=== PATIENT | male | born 1955 | race Two or more races ===

== ENCOUNTER 2017-09-24 08:31 | Day surgery (SDC) | payer OTHER ==
[2017-09-23 14:53] VITALS: BMI 24.8
[2017-09-24 09:01] LABS: BASO % 0.7 % (0-2.0); EOS % 3.5 % (0-4.5); HEMOGLOBIN 15.9 GM/dL (11.7-16.9); LYMPH % 30.1 % (8-40); MCH 31.6 pg (25.7-33.7); MCHC 33.8 g/dl (32.0-35.9); MEAN CELL VOLUME 93.6 fl (80-96); MEAN PLT VOLUME 7.9 fl (7.5-11.1); MONO % 9.9 % (3.8-10.2); NEUT % 55.8 % (42.8-82.8); PLATELET COUNT 204 K/MM3 (134-434); RBC 5.02 M/mm3 (4.00-5.60); RDW 12.6 % (11.9-15.9); WHITE BLOOD COUNT 6.9 K/mm3 (4.0-10.0)
[2017-09-24 09:23] LABS: INR 1.05 (0.82-1.09); PROTHROMBIN TIME (PATIENT) 11.9 SEC (9.98-11.88)
[2017-09-24 12:14] VITALS: BP 112/68; PULSE 76; TEMP 98
--- NOTE | 2017-09-29 17:09 | PATH ---
Surgical Pathology Report Patient Name: CARMELINA GREGORY [facility]. Rec. #: [id number] /Age/Gender: 1955 (Age: 62) / M Account: [id number] Location: RADIOLOGY Taken: 09/24/2017 Received: 09/24/2017 Reported: 09/29/2017 Physicians: Thaddeus Cline M.D. Specimen(s) Received RIGHT GROIN BX Clinical History 62-year-old male with lymph node biopsy and NHL. Now with inguinal adenopathy Final Diagnosis INGUINAL LYMPH NODE, RIGHT, CORE BIOPSY: DIFFUSE LARGE B-CELL LYMPHOMA, NON-GERMINAL CENTER (NGC) B-CELL-LIKE, SEE COMMENT. Comment: Histologic sections show normal lymph node structures are not identified. There is a partial infiltrate by medium sized to large lymphoid cells with oval to irregular nuclear contours, vesicular chromatin and conspicuous nucleoli. Immunostains demonstrate that the large B cells are positive for CD20, PAX-5, BCL2, BCL6, and MUM-1. The proliferative rate is approximately 30%. Concurrent flow cytometry immunophenotyping ([id number]) detected a clonal B-cell population with non-specific immunophenotype, 10% of total events. History of previously diagnosed diffuse large B cell lymphoma, non-germinal center subtype, in occipital soft tissue mass is noted ([id number]). Case was sent for hematopathology consultation with immunohistochemistry to Reese Lindsey at [facility] ([id number]). The above diagnosis reflects his opinion. Findings discussed with Dr. Cline. See Emerge report for additional details ([id number] and [id number]) Electronically Signed Jenni Diallo M.D. Addendum Reported: 10/06/2017 Addendum Diagnosis FISH Report from [facility] in [place], [place] ([id number]) shows the following: INTERPRETATION: No IGH/BCL2 t(14;18) translocation is detected. No MYC (8q24) rearrangement is detected. No BCL6 (3q27) rearrangement is detected. Comment: Multiple copies of BCL 2(14;18) are seen in 60% of cells. Three copies of BCL6 (3q 27) are seen in 40% of cells. Three multiplex probes stain procedures were performed. Jenni Diallo M.D. Gross Description Received in formalin labeled "right groin biopsy," are 3 meyers, cylindrical portions of soft tissue ranging from 0.6-0.8 cm in length and averaging 0.1 cm in diameter. The specimens are submitted in toto in one cassette. 09/24/201709/24/2017
== END 2017-09-24 12:17 | disposition home or self-care (01) ==
LOC: JRADIR 08:31
PROVIDERS: ATTEND Surgery
PROC: 07BH3ZX Excision of Right Inguinal Lymphatic, Percutaneous Approach, Diagnostic (ICD-10-PCS; principal; 2017-09-24)
DX: C83.55 Lymphoblastic (diffuse) lymphoma, lymph nodes of inguinal region and lower limb (principal)
CPT/HCPCS: 36415; 38505; 76942-TC; 85025; 85610; 88305-TC

== ENCOUNTER 2017-12-31 05:43 | Inpatient (IN) | payer OTHER ==
--- NOTE | 2017-12-31 06:12 | PDOC ---
*Physical Exam - Vital Signs Last Vital Signs Temp Pulse Resp BP Pulse Ox 98.1 F 111 H 18 139/88 100 12/31/17 05:54 12/31/17 05:54 12/31/17 05:54 12/31/17 05:54 12/31/17 05:54 ED Treatment Course - LABORATORY CBC & Chemistry Diagram: 01/04/18 07:00 01/04/18 07:00 Medical Decision Making - Medical Decision Making 12/31/17 06:12 agree with care from TONY Hummel *DC/Admit/Observation/Transfer Diagnosis at time of Disposition: History of non-Hodgkin's lymphoma, Abdominal pain, SBO (small bowel obstruction ) - Discharge Dispostion Disposition: HOME Condition at time of disposition: Good - Prescriptions - Referrals - Patient Instructions - Post Discharge Activity
[2017-12-31] MEDS ORDERED: ONDANSETRON 4 MG/2 ML VIAL IVPUSH ONE ×2 (06:15→22:10)
[2017-12-31] MEDS ORDERED: ONDANSETRON 4 MG/2 ML VIAL ONE (06:26)
--- NOTE | 2017-12-31 06:32 | PDOC ---
History of Present Illness - General Chief Complaint: Pain Stated Complaint: PAIN/BLOOD IN URINE Time Seen by Provider: 12/31/17 05:57 History Source: Patient - History of Present Illness Initial Comments: 12/31/17 06:33 62-year-old male with history of lymphoma currently on chemotherapy complains of generalized abdominal pain, nausea, hiccups and abdominal distention. Patient reports that he was admitted for the last week for chemotherapy was released just 3 days ago. Patient is noted to have worsening constipation is discharged from the hospital at [facility]. Patient was was seen by Dr. Madrid was given Fleet enema, with positive BM. Patient continued to have abdominal distention and discomfort despite bowel movement. Patient reports that he has been drinking less due to the nausea and urine is less and dark. Unsure of hematuria. denies fevers/chills, chest pain, diaphoresis, dizziness, vomiting. PMHx: Seizure Disorder, Hemorrhoids, Non-Hodgkins Lymphoma, Aortic Aneurysm ( 2008). PSHx of: Angioplasty, Cholestectomy, Colonoscopy (2013, small polyp removed) PMD: Dr. Joshua Aguilera Past History - Past Medical History Allergies/Adverse Reactions: Allergies Allergy/AdvReac Type Severity Reaction Status Date / Time No Known Drug Allergies Allergy Verified 12/31/17 05:57 Home Medications: Ambulatory Orders Acyclovir [Zovirax -] 1 tab PO BID 12/31/17 Ciprofloxacin HCl [Cipro] 1 tab PO BID 12/31/17 Filgrastim [Neupogen -] 1 syringe SQ HS 12/31/17 Fluconazole 200 mg PO DAILY 12/31/17 Levetiracetam [Keppra Xr -] 750 mg PO DAILY 12/31/17 Prochlorperazine Maleate [Compazine] 10 mg PO QID PRN 12/31/17 Acyclovir [Zovirax -] 400 mg PO BID tablet 01/03/18 Docusate Sodium [Colace] 100 mg PO TID #90 capsule 01/03/18 Fluconazole [Diflucan -] 200 mg PO DAILY tablet 01/03/18 Prochlorperazine Maleate [Compazine -] 10 mg PO Q6HPO PRN #20 tablet 01/03/18 Sennosides [Senna] 8.6 mg PO BID #60 tablet 01/03/18 Tbo-Filgrastim [Granix -] 480 mcg SQ HS disp.syrin 01/03/18 levETIRAcetam [Levetiracetam -] 750 mg PO AM tab.er.24h 01/03/18 metroNIDAZOLE [Flagyl -] 250 mg PO TID #42 tablet 01/03/18 Anemia: Yes Asthma: No Cancer: No Cardiac Disorders: Yes (AORTIC ANEURYSM) CVA: No COPD: No CHF: No ((FOLLOWED BY DR GREEN) Dementia: No Diabetes: No GI Disorders: Yes (BLOATED, hemmorhoids) Disorders: No HTN: No Hypercholesterolemia: No Liver Disease: No Seizures: Yes (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, FLASHES LAST WEDNESDAY) Thyroid Disease: No - Surgical History Abdominal Surgery: No Appendectomy: No Cardiac Surgery: Yes (ANGIOPLASTY) Cholecystectomy: Yes () Lung Surgery: No Neurologic Surgery: No Orthopedic Surgery: No - Immunization History Immunization Up to Date: No - Suicide/Smoking/Psychosocial Hx Smoking Status: Yes Smoking History: Former smoker Have you smoked in the past 12 months: No Number of Cigarettes Smoked Daily: 10 If you are a former smoker, when did you quit?: 1980s Cigars Per Day: 3 Information on smoking cessation initiated: No Hx Alcohol Use: Yes (social) Drug/Substance Use Hx: No Substance Use Type: None Hx Substance Use Treatment: No Review of Systems - Review of Systems Able to Perform ROS?: Yes Is the patient limited Ukrainian proficient: No Constitutional: No: Symptoms Reported, See HPI, Chills, Diaphoresis, Fever, Loss of Appetite, Malaise, Night Sweats, Weakness, Weight Stable, Unintentional Wgt. Loss, Unexplained wgt Loss, Other ABD/GI: Yes: Constipated, Nausea, Abdominal cramping : Yes: Hematuria *Physical Exam - Vital Signs Last Vital Signs Temp Pulse Resp BP Pulse Ox 98.1 F 111 H 18 139/88 100 12/31/17 05:54 12/31/17 05:54 12/31/17 05:54 12/31/17 05:54 12/31/17 05:54 - Physical Exam General Appearance: Yes: Mild Distress Respiratory/Chest: positive: Lungs Clear, Normal Breath Sounds Cardiovascular: positive: Regular Rhythm, Regular Rate Gastrointestinal/Abdominal: positive: Decreased BS, Distended Musculoskeletal: positive: Normal Inspection Extremity: positive: Normal Capillary Refill, Normal Inspection, Normal Range of Motion Integumentary: positive: Normal Color, Dry, Warm Neurologic: positive: Fully Oriented, Alert, Normal Mood/Affect ED Treatment Course - LABORATORY CBC & Chemistry Diagram: 01/03/18 07:00 01/03/18 07:00 Progress Note - Progress Note Progress Note: A: abdominal pain P: cbc cmp CTAP Patient signed out Willard LEIVA. pending results. *DC/Admit/Observation/Transfer Diagnosis at time of Disposition: History of non-Hodgkin's lymphoma, SBO (small bowel obstruction) Abdominal pain Qualifiers: Abdominal location: generalized Qualified Code(s): R10.84 - Generalized abdominal pain - Discharge Dispostion Condition at time of disposition: Good - Prescriptions - Referrals - Patient Instructions - Post Discharge Activity
[2017-12-31 06:42] LABS: URINE APPEARANCE CLEAR; URINE BILIRUBIN NEGATIVE (NEGATIVE); URINE BLOOD NEGATIVE (NEGATIVE); URINE COLOR YELLOW; URINE GLUCOSE (UA) 1+ (NEGATIVE); URINE KETONE TRACE (NEGATIVE); URINE LEUK ESTERASE NEGATIVE (NEGATIVE); URINE NITRITE NEGATIVE (NEGATIVE); URINE PROTEIN NEGATIVE (NEGATIVE); URINE UROBILINOGEN NEGATIVE mg/dL (0.2-1.0)
[2017-12-31 06:45] LABS: BASO % 0.3 % (0-2.0); EOS % 1.2 % (0-4.5); HEMATOCRIT 40.4 % (35.4-49); HEMOGLOBIN 14.2 GM/dL (11.7-16.9); LYMPH % 13.4 % (8-40); MCH 33.5 pg (25.7-33.7); MCHC 35.2 g/dl (32.0-35.9); MEAN PLT VOLUME 9.2 fl (7.5-11.1); MONO % 5.1 % (3.8-10.2); PLATELET COUNT 107 K/MM3 (134-434); RBC 4.25 M/mm3 (4.00-5.60); RDW 13.5 % (11.9-15.9)
[2017-12-31] MEDS ORDERED: SODIUM CHLORIDE 500 ML IV STA (06:49)
[2017-12-31 07:08] LABS: ALBUMIN 3.9 g/dl (3.4-5.0); ALK PHOS 128 U/L (45-117); ANION GAP 8 (8-16); BILIRUBIN,TOTAL 1.1 mg/dL (0.2-1.0); BLOOD UREA NITROGEN 13 mg/dL (7-18); CALCIUM 9.4 mg/dL (8.5-10.1); CHLORIDE 91 mmol/L (98-107); CO2 28 mmol/L (21-32); CREATININE 0.8 mg/dL (0.7-1.3); GLUCOSE,RANDOM 115 mg/dL (74-106); LIPASE 170 U/L (73-393); POTASSIUM 3.9 mmol/L (3.5-5.1); SGOT/AST 30 U/L (15-37); SGPT/ALT 68 U/L (12-78); SODIUM 127 mmol/L (136-145); TOT PROT 6.9 g/dl (6.4-8.2)
[2017-12-31 07:09] LABS: INR 1.06 (0.82-1.09)
[2017-12-31 07:11] LABS: ACTIVATED PTT 27.1 SECONDS (26.9-34.4)
--- NOTE | 2017-12-31 08:06 | PDOC ---
ED Treatment Course - LABORATORY CBC & Chemistry Diagram: 12/31/17 06:30 12/31/17 06:30 - ADDITIONAL ORDERS Additional order review: Laboratory Results 12/31/17 12/31/17 12/31/17 06:30 06:30 06:30 PT with INR 12.00 H INR 1.06 PTT (Actin FS) 27.1 Sodium 127 L Potassium 3.9 Chloride 91 L D Carbon Dioxide 28 Anion Gap 8 BUN 13 Creatinine 0.8 Creat Clearance w eGFR > 60 Random Glucose 115 H D Calcium 9.4 Total Bilirubin 1.1 H D AST 30 D ALT 68 D Alkaline Phosphatase 128 H D Total Protein 6.9 Albumin 3.9 Lipase 170 Urine Color Yellow Urine Appearance Clear Urine pH 5.0 Ur Specific [place] 1.021 Urine Protein Negative Urine Glucose (UA) 1+ H Urine Ketones Trace H Urine Blood Negative Urine Nitrite Negative Urine Bilirubin Negative Urine Urobilinogen Negative Ur Leukocyte Esterase Negative 12/31/17 06:30 RBC 4.25 MCV 95.0 MCHC 35.2 RDW 13.5 MPV 9.2 D Neutrophils % 80.0 D Lymphocytes % 13.4 D Monocytes % 5.1 Eosinophils % 1.2 Basophils % 0.3 - Medications Given in the ED: ED Medications Discontinued Medications Generic Name Dose Route Start Last Admin Trade Name Freq PRN Reason Stop Dose Admin Ondansetron HCl 4 mg 12/31/17 06:15 12/31/17 06:31 Zofran Injection IVPUSH 12/31/17 06:16 4 mg ONCE ONE Administration Progress Note - Progress Note Progress Note: I have received report from TONY Hummel regarding this patient. Pt's initial chief complaint: abdominal pain, nausea and abdominal distention Pt's work up completed prior to sign out: labs, EKG Pt treatment given from prior staff: IV fluids, zofran Pt plan to be completed: Awaiting CT scan abd/pelvis to r/o SBO Dispo: Pending Medical Decision Making - Medical Decision Making A/P: 62 y/o afebrile male with hx of lymphoma currently on chemotherapy c/o abd pain, nausea and distention x 3 days. Patient was initially assessed by TONY Hummel and is being worked up to r/o SBO. Labs and UA otherwise unremarkable. Awaiting CT scan abd/pelvis. CT scan abd/pelvis IMPRESSION: There is associated prominent fecal accumulation within the ileum. Dilatation of the more proximal small bowel is noted consistent with resultant obstruction. Called Dr. Henriquez who accepts admission on behalf of Dr. Aguilera. Dr. Landry was paged for consult. Spoke with him as well and he will consult. Patient made aware of plan for NG tube and admission. *DC/Admit/Observation/Transfer Diagnosis at time of Disposition: History of non-Hodgkin's lymphoma, SBO (small bowel obstruction) Abdominal pain Qualifiers: Abdominal location: generalized Qualified Code(s): R10.84 - Generalized abdominal pain - Discharge Dispostion Condition at time of disposition: Stable Admit: Yes - Referrals Referrals: Joshua Aguilera MD [Primary Care Provider] - - Patient Instructions - Post Discharge Activity
--- NOTE | 2017-12-31 09:43 | EKG ---
Test Reason : Blood Pressure : / mmHG Vent. Rate : 092 BPM Atrial Rate : 092 BPM P-R Int : 146 ms QRS Dur : 090 ms QT Int : 352 ms P-R-T Axes : 065 -03 039 degrees QTc Int : 435 ms POOR DATA QUALITY, INTERPRETATION MAY BE ADVERSELY AFFECTED SINUS RHYTHM WITH PREMATURE SUPRAVENTRICULAR COMPLEXES WHEN COMPARED WITH ECG OF 01-MAY-2016 22:11, PREMATURE SUPRAVENTRICULAR COMPLEXES ARE NOW PRESENT Confirmed by ROSA M GREEN MD ([id number]) on 12/31/2017 9:43:02 AM Referred By: Confirmed By:ROSA M GREEN MD
[2017-12-31] MEDS ORDERED: LIDOCAINE HCL 2% JELLY (5 ML/TUBE) ONE (11:06)
--- NOTE | 2017-12-31 11:25 | CONSULT ---
Consult Consult Specialty:: General Surgery Referred by:: Katharina Palacios NP Reason for Consultation:: SBO on imaging - History of Present Illness Chief Complaint: nausea and abdominal distension History of Present Illness: 62yo male with PMH chronic constipation, seizures on keppra, HTN, Non-Hodgkin Lymphoma recently started dual agent chemotherapy presented to he emergency department complaining of generalized abdominal pain, nausea, hiccups, burping and abdominal distention. He has had no vomiting. Patient reports that he was admitted for the last week for chemotherapy was released just 3 days ago. Patient is noted to have worsening constipation is discharged from the hospital at [facility]. Patient was was seen by Dr. Madrid was given Fleet enema, with positive BM. Patient continued to have abdominal distention and discomfort despite bowel movement. He is not passing flatus like normal, he is obstipated, reporting 2 mucus like BM, non bloody. He denies feeling hungry, not eating much. Patient reports that he has been drinking less due to the nausea and urine is less and dark. Unsure of hematuria. denies fevers/chills , chest pain, diaphoresis, dizziness, vomiting. He had a CT scan that showed fecal retention and associated SBO. We were asked to assess. - History Source History Provided By: Patient, Medical Record Limitations to Obtaining History: No Limitations - Past Medical History Gastrointestinal: Yes: Constipation Additional Medical History: NHL - Alcohol/Substance Use Hx Alcohol Use: Yes (social) - Smoking History Smoking history: Former smoker Have you smoked in the past 12 months: No Aproximately how many cigarettes per day: 10 If you are a former smoker, when did you quit?: 1980s Home Medications - Allergies Allergies/Adverse Reactions: Allergies Allergy/AdvReac Type Severity Reaction Status Date / Time No Known Drug Allergies Allergy Verified 12/31/17 05:57 - Home Medications Home Medications: Ambulatory Orders Unobtainable [Unobtainable] 12/31/17 Review of Systems - Review of Systems Constitutional: reports: Lethargy, Loss of Appetite. denies: Chills, Fever Eyes: denies: Blind Spots, Recent Change in Vision HENT: denies: Difficult Swallowing, Throat Pain Cardiovascular: denies: Chest Pain, Palpitations Respiratory: denies: Cough, SOB Gastrointestinal: reports: Abdominal Pain, Constipation. denies: Indigestion, Vomiting Genitourinary: denies: Burning, Discharge, Dysuria Breasts: reports: No Symptoms Reported. denies: Pain Musculoskeletal: denies: Back Pain, Joint Swelling Integumentary: reports: Other (acute alopecia 2nd to chemotherapy). denies: Bruising, Eczema Neurological: reports: Seizure. denies: Confusion, Syncope Endocrine: denies: Unexplained Weight Gain, Unexplained Weight Loss Hematology/Lymphatic: denies: Easily Bruised, Excessive Bleeding Psychiatric: denies: Anxiety, Depression Physical Exam Vital Signs: Vital Signs Temperature 98.1 F 12/31/17 05:54 Pulse Rate 111 H 12/31/17 05:54 Respiratory Rate 18 12/31/17 05:54 Blood Pressure 139/88 12/31/17 05:54 O2 Sat by Pulse Oximetry (%) 100 12/31/17 05:54 Vital Signs Period Temp Pulse Resp BP Sys/Gonzalez Pulse Ox Last 24 Hr 98.1 F-98.9 F 88-111 -18 130-146/67-96 98-100 Intake & Output 12/30/17 12/31/17 12/31/17 23:59 07:59 15:59 Weight 176 lb 173 lb 3.2 oz Other: Voiding Method Toilet Height 5 ft 10 in 5 ft 10 in Body Mass Index (BMI) 25.2 24.8 Weight Measurement Method Built in [facility] Weight Measurement Method Est/Stated by Patient Constitutional: Yes: Well Nourished, No Distress, Calm Eyes: Yes: Conjunctiva Clear, EOM Intact HENT: Yes: Atraumatic, Normocephalic, Other (acute alopecia scalp and) Cardiovascular: Yes: Regular Rate and Rhythm, S1, S2 Respiratory: Yes: Regular, CTA Bilaterally Gastrointestinal: Yes: Normal Bowel Sounds, Soft, Distention, Tenderness ( diffuse abdominal pain), Other (NGT to LCWS scant output ~50ml gastroenteric). No: Tenderness, Rebound, Vomiting ...Rectal Exam: Yes: Hemorrhoids/External, Sphincter Tone Normal. No: Mass Renal/: No: CVA Tenderness - Left, CVA Tenderness - Right Musculoskeletal: No: Muscle Pain, Muscle Weakness Extremities: No: Cool, Cyanosis Peripheral Pulses WNL: Yes Integumentary: No: Jaundice, Rash Neurological: Yes: Alert, Oriented Psychiatric: Yes: Alert, Oriented Labs: CBC, BMP 12/31/17 06:30 12/31/17 06:30 Imaging - Results Cat Scan: Report Reviewed (Massive fecal renention of the right and transverse colon with associated SBO), Image Reviewed EKG: Report Reviewed (sinus with some PVC), Image Reviewed Problem List - Problems (1) Constipation Assessment/Plan: 62 yo male with NHL Fecal retention right and transverse colon, fecalization of IC valve functioning as an SBO. This is likely secondary to dehydration and constipation following his recent chemotherapy. NPO and IVF hydration NGT decompression 6-8hrs Aggressively correct electrolytes given plan for laxatives and seizure history PO and MI laxatives (Dulcolax) Miralax via NGT after decompression OOB walk around Abdominal Xrays tomorrow morning Consider GI f/u with Dr. Robertson will follow Thank you for the opportunity to participate in the care of this patient. Code(s): K59.00 - CONSTIPATION, UNSPECIFIED Qualifiers: Constipation type: drug induced constipation Qualified Code(s): K59.03 - Drug induced constipation (2) SBO (small bowel obstruction) Code(s): K56.609 - UNSP INTESTNL OBST, UNSP TO PARTIAL VERSUS COMPLETE OBST (3) Abdominal pain Code(s): R10.9 - UNSPECIFIED ABDOMINAL PAIN Qualifiers: Abdominal location: generalized Qualified Code(s): R10.84 - Generalized abdominal pain (4) History of non-Hodgkin's lymphoma Code(s): Z85.72 - PERSONAL HISTORY OF NON-HODGKIN LYMPHOMAS (5) Hemorrhoids Code(s): K64.9 - UNSPECIFIED HEMORRHOIDS
[2017-12-31] MEDS ORDERED: BISACODYL 5 MG TABLET.DR (FP) PO PRN (11:37)
[2017-12-31] MEDS ORDERED: BISACODYL 10 MG SUPP.RECT RC ONE ×2 (11:37→13:55)
[2017-12-31] MEDS ORDERED: SODIUM CHLORIDE 0.9% 500 ML INFUS.BAG IV ONE (11:41)
[2017-12-31] MEDS ORDERED: LACTATED RINGERS SOLUTION 1,000 ML/1,000 ML INFUS.BAG IV SCH (11:45)
[2017-12-31] MEDS: SODIUM CHLORIDE 1,000 ML IV SCH ×2 (12:46→14:01)
[2017-12-31 13:00] VITALS: BMI 24.8
[2017-12-31] MEDS ORDERED: POLYETHYLENE GLYCOL 3350 255 GM BTL PO ONE (14:00)
[2017-12-31] MEDS: FLUCONAZOLE 100 MG TABLET (UD) PO SCH (17:02)
[2017-12-31] MEDS: KETOROLAC TROMETHAMINE 30 MG/1 ML VIAL IVPB PRN (17:06)
[2017-12-31] MEDS ORDERED: PT OWN MED DRAWER 7, Y5N ONE (18:32)
[2017-12-31] MEDS ORDERED: levETIRAcetam XR 750 MG TAB PO SCH (22:00)
--- NOTE | 2017-12-31 22:32 | HP ---
Admitting History and Physical - Admission History of Present Illness: Pt is a 62 y/o male with PMH significant for NHL(currently on chemotherapy), seizure dz, CAD and HTN. Pt presented to the ER w/ complaints of generalized abdominal pain, nausea, hiccups and abdominal distention. Patient reports that he was admitted for the last week for chemotherapy was released just 3 days ago. Patient is noted to have worsening constipation. Patient was seen by GI( Dr. Madrid) and given Fleet enema, with positive BM. Patient continued to have abdominal distention and discomfort despite bowel movement. Patient reports that he has been drinking less due to the nausea and urine is less and dark. U - Past Medical History Cardiovascular: Yes: HTN Gastrointestinal: Yes: Constipation Heme/Onc: Yes: Other (NHL) - Past Surgical History Past Surgical History: Yes: AAA Repair - Smoking History Smoking history: Former smoker Have you smoked in the past 12 months: No Aproximately how many cigarettes per day: 10 If you are a former smoker, when did you quit?: 1980s - Alcohol/Substance Use Hx Alcohol Use: Yes (social) Home Medications - Allergies Allergies/Adverse Reactions: Allergies Allergy/AdvReac Type Severity Reaction Status Date / Time No Known Drug Allergies Allergy Verified 12/31/17 05:57 - Home Medications Home Medications: Ambulatory Orders Acyclovir [Zovirax -] 1 tab PO BID 12/31/17 Bisacodyl [Dulcolax] 5 mg PO DAILY PRN 12/31/17 Ciprofloxacin HCl [Cipro] 1 tab PO BID 12/31/17 Filgrastim [Neupogen -] 1 syringe SQ HS 12/31/17 Fluconazole 200 mg PO DAILY 12/31/17 Levetiracetam [Keppra Xr -] 750 mg PO DAILY 12/31/17 Prochlorperazine Maleate [Compazine] 10 mg PO QID PRN 12/31/17 Family Disease History - Family Disease History Family History: Unremarkable Review of Systems - Review of Systems Constitutional: reports: Weakness HENT: reports: No Symptoms Neck: reports: No Symptoms Cardiovascular: reports: No Symptoms Respiratory: reports: No Symptoms Gastrointestinal: reports: Abdominal Pain, Bloating, Constipation Physical Examination Vital Signs: Vital Signs Temperature 99.2 F 12/31/17 17:29 Pulse Rate 92 H 12/31/17 17:29 Respiratory Rate 20 12/31/17 17:29 Blood Pressure 137/83 12/31/17 17:29 O2 Sat by Pulse Oximetry (%) 100 12/31/17 14:15 Constitutional: Yes: Well Nourished HENT: Yes: WNL Neck: Yes: WNL, Supple Cardiovascular: Yes: WNL, Regular Rate and Rhythm Respiratory: Yes: WNL, Regular, CTA Bilaterally Gastrointestinal: Yes: Distention, Tenderness Musculoskeletal: Yes: WNL Extremities: Yes: WNL Edema: No Neurological: Yes: WNL, Alert, Oriented Labs: CBC, BMP 12/31/17 06:30 12/31/17 06:30 Problem List - Problems (1) SBO (small bowel obstruction) Assessment/Plan: Cont IVF/NPO As per surgery Will also get GI consult Code(s): K56.609 - UNSP INTESTNL OBST, UNSP TO PARTIAL VERSUS COMPLETE OBST (2) Non-Hodgkin lymphoma Assessment/Plan: Cont chemotx Code(s): C85.90 - NON-HODGKIN LYMPHOMA, UNSPECIFIED, UNSPECIFIED SITE (3) Leukopenia Assessment/Plan: Cont neupogen Code(s): D72.819 - DECREASED WHITE BLOOD CELL COUNT, UNSPECIFIED (4) History of seizures Assessment/Plan: Cont keppra May need to make it IV due to SBO Code(s): Z87.898 - PERSONAL HISTORY OF OTHER SPECIFIED CONDITIONS
[2017-12-31] MEDS ORDERED: levETIRAcetam 500 MG/5 ML INJECTION VIAL IVPB ONE (23:32)
[2017-12-31] MEDS ORDERED: BISACODYL 10 MG SUPP.RECT PR ONE (23:33)
[2017-12-31] MEDS: ACYCLOVIR 400 MG TABLET PO SCH (23:45)
[2017-12-31] MEDS: TBO-FILGRASTIM 480 MCG/0.8 ML DISP.SYRIN SQ SCH (23:53)
[2018-01-01] MEDS ORDERED: levETIRAcetam 500 MG/5 ML INJECTION VIAL IVPB ONE (00:13)
[2018-01-01] MEDS ORDERED: BISACODYL 5 MG TABLET.DR (FP) PO PRN (01:56)
[2018-01-01] MEDS: KETOROLAC TROMETHAMINE 30 MG/1 ML VIAL IVPB PRN (02:08)
--- NOTE | 2018-01-01 02:11 | PN ---
Progress Note, Physician Chief Complaint: abdominal pain History of Present Illness: 62yo male with PMH chronic constipation, Non-Hodgkin Lymphoma recently started dual agent chemotherapy presented to he emergency department complaining of generalized abdominal pain, nausea, hiccups, burping and abdominal distention. no acute events overnight, NGT was irritating and he asked for its removal - Current Medication List Current Medications: Active Medications Acyclovir (Zovirax -) 400 mg PO BID [facility] Last Admin: 12/31/17 23:45 Dose: Not Given Bisacodyl (Dulcolax -) 5 mg PO DAILY PRN PRN Reason: CONSTIPATION Bisacodyl (Dulcolax -) 5 mg PO DAILY PRN PRN Reason: CONSTIPATION Ciprofloxacin (Cipro (Restricted To Id)) mg PO BID [facility] Fluconazole (Diflucan -) 200 mg PO DAILY [facility] Last Admin: 12/31/17 17:02 Dose: 200 mg Heparin Sodium (Porcine) (Heparin -) 5,000 unit SQ BID [facility] Sodium Chloride (Normal Saline -) 1,000 mls @ 125 mls/hr IV ASDIR [facility] Last Admin: 12/31/17 14:01 Dose: 125 mls/hr Ketorolac Tromethamine (Toradol Injection -) 30 mg IVPB Q6H PRN PRN Reason: PAIN LEVEL 6-10 Stop: 01/05/18 16:18 Last Admin: 01/01/18 02:08 Dose: 30 mg Levetiracetam (Keppra Xr -) 750 mg PO HS [facility] Last Admin: 12/31/17 23:48 Dose: Not Given Levetiracetam (Keppra Xr -) 750 mg PO DAILY [facility] Levofloxacin (Levaquin -) 500 mg PO DAILY@0600 [facility] Last Admin: 12/31/17 17:02 Dose: 500 mg Non-Formulary Medication (Fluconazole [Fluconazole]) 200 mg PO DAILY [facility] Ondansetron HCl (Zofran Injection) 4 mg IVPUSH Q4H PRN PRN Reason: NAUSEA AND/OR VOMITING Tbo-Filgrastim (Granix -) 480 mcg SQ [facility] Last Admin: 12/31/17 23:53 Dose: 480 mcg - Objective Vital Signs: Vital Signs Temperature 99.2 F 12/31/17 17:29 Pulse Rate 92 H 12/31/17 17:29 Respiratory Rate 20 12/31/17 17:29 Blood Pressure 137/83 12/31/17 17:29 O2 Sat by Pulse Oximetry (%) 100 12/31/17 14:15 Vital Signs Period Temp Pulse Resp BP Sys/Gonzalez Pulse Ox Last 24 Hr 98 F-99.2 F 88-111 18-20 130-162/67-96 98-100 Intake & Output 12/31/17 12/31/17 01/01/18 15:59 23:59 07:59 Intake Total 1000 50 Balance 1000 50 Weight 173 lb 3.2 oz Intake: IV 1000 Normal Saline - 500 ml @ 1000 500 mls/hr IV ASDIR [facility] Rx#:[id number] IVPB 50 Other: Voiding Method Toilet Toilet Height 5 ft 10 in Body Mass Index (BMI) 24.8 Weight Measurement Method Built in [facility] Constitutional: Yes: Well Nourished, No Distress Eyes: Yes: Conjunctiva Clear, EOM Intact HENT: Yes: Atraumatic, Normocephalic Neck: Yes: Supple, Trachea Midline Cardiovascular: Yes: Regular Rate and Rhythm, S1, S2 Respiratory: Yes: Regular, CTA Bilaterally Gastrointestinal: Yes: Normal Bowel Sounds, Soft, Distention. No: Tenderness ...Rectal Exam: Yes: Deferred Genitourinary: No: CVA Tenderness - Left, CVA Tenderness - Right Musculoskeletal: No: Muscle Pain, Muscle Weakness Extremities: No: Cool, Cyanosis Edema: No Peripheral Pulses WNL: Yes Neurological: Yes: Alert, Oriented Psychiatric: Yes: Alert, Oriented Labs: CBC, BMP 12/31/17 06:30 12/31/17 06:30 INR, PTT INR 1.06 (0.82-1.09) 12/31/17 06:30 Problem List - Problems (1) Constipation Assessment/Plan: 62 yo male with NHL Fecal retention right and transverse colon, fecalization of IC valve functioning as an SBO. This is likely secondary to dehydration and constipation following his recent chemotherapy. Stool burden persists on todays xray. NPO and IVF hydration NGT discontinued correct electrolytes continued Golytely Bowel Prep as tolerated OOB walk around Abdominal Xray appreciate Dr. Marcelo nortonations Code(s): K59.00 - CONSTIPATION, UNSPECIFIED Qualifiers: Constipation type: drug induced constipation Qualified Code(s): K59.03 - Drug induced constipation (2) SBO (small bowel obstruction) Code(s): K56.609 - UNSP INTESTNL OBST, UNSP TO PARTIAL VERSUS COMPLETE OBST (3) Abdominal pain Code(s): R10.9 - UNSPECIFIED ABDOMINAL PAIN Qualifiers: Abdominal location: generalized Qualified Code(s): R10.84 - Generalized abdominal pain (4) History of non-Hodgkin's lymphoma Code(s): Z85.72 - PERSONAL HISTORY OF NON-HODGKIN LYMPHOMAS (5) Hemorrhoids Code(s): K64.9 - UNSPECIFIED HEMORRHOIDS
[2018-01-01] MEDS: ONDANSETRON 4 MG/2 ML VIAL IVPUSH PRN ×3 (03:36→18:55)
[2018-01-01 07:20] LABS: BASO % 0.5 % (0-2.0); EOS % 0.1 % (0-4.5); HEMATOCRIT 38.4 % (35.4-49); HEMOGLOBIN 13.4 GM/dL (11.7-16.9); MCH 33.3 pg (25.7-33.7); MCHC 34.9 g/dl (32.0-35.9); MEAN CELL VOLUME 95.5 fl (80-96); MEAN PLT VOLUME 9.1 fl (7.5-11.1); NEUT % 72.4 % (42.8-82.8); PLATELET COUNT 107 K/MM3 (134-434); RBC 4.02 M/mm3 (4.00-5.60); RDW 13.8 % (11.9-15.9); WHITE BLOOD COUNT 2.1 K/mm3 (4.0-10.0)
[2018-01-01 07:40] LABS: ALBUMIN 3.8 g/dl (3.4-5.0); ANION GAP 13 (8-16); BLOOD UREA NITROGEN 21 mg/dL (7-18); CALCIUM 8.7 mg/dL (8.5-10.1); CHLORIDE 95 mmol/L (98-107); CO2 25 mmol/L (21-32); GLUCOSE,RANDOM 131 mg/dL (74-106); SODIUM 133 mmol/L (136-145)
[2018-01-01 07:43] LABS: ALK PHOS 104 U/L (45-117); BILIRUBIN,TOTAL 0.9 mg/dL (0.2-1.0); MAGNESIUM 2.1 mg/dL (1.8-2.4); PHOSPHOROUS 2.3 mg/dL (2.5-4.9); SGOT/AST 31 U/L (15-37); SGPT/ALT 80 U/L (12-78); TOT PROT 6.6 g/dl (6.4-8.2)
[2018-01-01] MEDS ORDERED: ACYCLOVIR 400 MG TABLET PO SCH (10:00)
[2018-01-01] MEDS ORDERED: levETIRAcetam XR 750 MG TAB PO SCH (10:00)
[2018-01-01] MEDS ORDERED: PATIENT'S OWN MEDICATION (NON-FORMULARY) (Fluconazole [Fluconazole] 200 MG) PO SCH (10:00)
[2018-01-01] MEDS ORDERED: CIPROFLOXACIN 500 MG TABLET (RESTRICTED TO ID) PO SCH (10:00)
[2018-01-01] MEDS: SODIUM CHLORIDE 1,000 ML IV SCH ×2 (11:23→21:10)
[2018-01-01] MEDS ORDERED: PEG3350/SOD SULF,BICARB,CL/KCL 4,000 ML SOLN.RECON PO ONE (11:50)
[2018-01-01] MEDS ORDERED: PEG 3350/NA SULF BICARB CL/KCL 4000 ML SOLN.RECON PO ONE (12:00)
[2018-01-01] MEDS ORDERED: PT OWN MED DRAWER 7, Y5N ONE ×3 (12:03→21:01)
[2018-01-01] MEDS: HEPARIN NA (PORCINE) 5,000 UNITS/ML 1ML VIAL SQ SCH ×3 (12:05→21:21)
[2018-01-01] MEDS: FLUCONAZOLE 100 MG TABLET (UD) PO SCH (12:06)
[2018-01-01] MEDS: ACYCLOVIR 400 MG TABLET PO SCH ×2 (12:06→22:49)
--- NOTE | 2018-01-01 13:18 | CONSULT ---
Consult Consult Specialty:: Oncology - History of Present Illness History of Present Illness: 62yo male with PMH chronic constipation, seizures on keppra, HTN, DLBCL presented to he emergency department complaining of generalized abdominal pain, nausea, hiccups, burping and abdominal distention. He has had no vomiting. Denies fevers/chills, chest pain, diaphoresis, dizziness, vomiting. He had a CT scan that showed fecal retention and associated SBO. Onc Hx as per Pt ( Pt f/u with Oncology at [facility]) NHL: 2012: Occipital mass: DLBCL ABC subtype. ( only resection, as PET CT was negative) 09/2017: Inguinal LN: Recurrence of the above lymphoma 10/2017- 12/2017: s/p R-ICW x 1, s/p R-EPOCH x1. most recent chemo is R-EPOCH , completed as of last Wednesday. Was taking Neupogen since Wednesday this week. Now admitted with SBO/Constipation Pt seen and examined - History Source History Provided By: Patient, Medical Record - Past Medical History Gastrointestinal: Yes: Constipation Additional Medical History: NHL - Alcohol/Substance Use Hx Alcohol Use: Yes (social) - Smoking History Smoking history: Former smoker Have you smoked in the past 12 months: No Aproximately how many cigarettes per day: 10 If you are a former smoker, when did you quit?: 1980s Home Medications - Allergies Allergies/Adverse Reactions: Allergies Allergy/AdvReac Type Severity Reaction Status Date / Time No Known Drug Allergies Allergy Verified 12/31/17 05:57 - Home Medications Home Medications: Ambulatory Orders Acyclovir [Zovirax -] 1 tab PO BID 12/31/17 Bisacodyl [Dulcolax] 5 mg PO DAILY PRN 12/31/17 Ciprofloxacin HCl [Cipro] 1 tab PO BID 12/31/17 Filgrastim [Neupogen -] 1 syringe SQ HS 12/31/17 Fluconazole 200 mg PO DAILY 12/31/17 Levetiracetam [Keppra Xr -] 750 mg PO DAILY 12/31/17 Prochlorperazine Maleate [Compazine] 10 mg PO QID PRN 12/31/17 Review of Systems - Review of Systems Gastrointestinal: reports: Abdominal Pain, Bloating, Constipation, Vomiting. denies: Diarrhea Physical Exam Vital Signs: Vital Signs Temperature 99.3 F 01/01/18 09:00 Pulse Rate 122 H 01/01/18 09:00 Respiratory Rate 18 01/01/18 09:00 Blood Pressure 147/84 01/01/18 09:00 O2 Sat by Pulse Oximetry (%) 97 01/01/18 09:00 Constitutional: Yes: Well Nourished, No Distress, Calm Eyes: Yes: Conjunctiva Clear, EOM Intact HENT: Yes: Atraumatic, Normocephalic Neck: Yes: Supple Cardiovascular: Yes: Regular Rate and Rhythm. No: Bradycardia Respiratory: Yes: Regular, CTA Bilaterally Gastrointestinal: Yes: Normal Bowel Sounds, Abdomen, Obese, Distention. No: Ascites, Tenderness, Tenderness, Epigastrium, Vomiting Musculoskeletal: Yes: WNL Extremities: Yes: WNL Edema: No Labs: CBC, BMP 01/01/18 06:00 01/01/18 06:00 Imaging - Results Cat Scan: Report Reviewed Problem List - Problems (1) History of non-Hodgkin's lymphoma Code(s): Z85.72 - PERSONAL HISTORY OF NON-HODGKIN LYMPHOMAS (2) SBO (small bowel obstruction) Code(s): K56.609 - UNSP INTESTNL OBST, UNSP TO PARTIAL VERSUS COMPLETE OBST (3) Constipation Code(s): K59.00 - CONSTIPATION, UNSPECIFIED Qualifiers: Constipation type: drug induced constipation Qualified Code(s): K59.03 - Drug induced constipation Assessment/Plan DLBCL ( recurrent ) , ABC subtype. s/p R_EPOCH as per pt, d/c from [facility] last weekend. As per him he did NOT get Neulasta, therefore on Neupogen Neupogen already ordered here, confirmed with pharmacy. Today, ANC is 1500, will continue Neupogen and follow CBC trend. Will continue until ANC >2000 x2. daily CBC f/u with his OP Medical oncologist at [facility] SBO/Constipation: CT reviewed, no mass noted, therefore malignant obstruction less likely. Presently on supportive care Plan per Surg/GI
[2018-01-01] MEDS: levETIRAcetam 500 MG/5 ML INJECTION VIAL IVPB SCH (17:51)
--- NOTE | 2018-01-01 18:12 | CON.GI ---
Consult Consult Specialty:: gastroenterology - History of Present Illness History of Present Illness: Asked to see patient because of severe constipation associated with abdominal distention . He had fair results with enemas given as an outpatient. - History Source History Provided By: Patient Limitations to Obtaining History: No Limitations - Past Medical History Gastrointestinal: Yes: Constipation Additional Medical History: NHL - Alcohol/Substance Use Hx Alcohol Use: Yes (social) - Smoking History Smoking history: Former smoker Have you smoked in the past 12 months: No Aproximately how many cigarettes per day: 10 If you are a former smoker, when did you quit?: 1980s Home Medications - Allergies Allergies/Adverse Reactions: Allergies Allergy/AdvReac Type Severity Reaction Status Date / Time No Known Drug Allergies Allergy Verified 12/31/17 05:57 - Home Medications Home Medications: Ambulatory Orders Acyclovir [Zovirax -] 1 tab PO BID 12/31/17 Bisacodyl [Dulcolax] 5 mg PO DAILY PRN 12/31/17 Ciprofloxacin HCl [Cipro] 1 tab PO BID 12/31/17 Filgrastim [Neupogen -] 1 syringe SQ HS 12/31/17 Fluconazole 200 mg PO DAILY 12/31/17 Levetiracetam [Keppra Xr -] 750 mg PO DAILY 12/31/17 Prochlorperazine Maleate [Compazine] 10 mg PO QID PRN 12/31/17 Physical Exam-GI Vital Signs: Vital Signs Temperature 98.1 F 01/01/18 16:17 Pulse Rate 109 H 01/01/18 16:17 Respiratory Rate 20 01/01/18 16:17 Blood Pressure 147/86 01/01/18 16:17 O2 Sat by Pulse Oximetry (%) 97 01/01/18 09:00 Constitutional: Yes: Well Nourished Eyes: Yes: Conjunctiva Clear HENT: Yes: Atraumatic Neck: Yes: Supple Cardiovascular: Yes: Regular Rate and Rhythm Respiratory: Yes: CTA Bilaterally Gastrointestinal Inspection: Yes: Distention ...Palpate: Yes: Soft. No: Firm/Rigid, Guarding, Hepatomegaly, Mass, Pulsatile Mass, Splenomegaly, Tenderness Labs: CBC, BMP 01/01/18 06:00 01/01/18 06:00 INR, PTT INR 1.06 (0.82-1.09) 12/31/17 06:30 Imaging - Results Cat Scan: Image Reviewed (markedly dilated cecum secondary to fecal impaction) Problem List - Problems (1) Fecal impaction of colon Assessment/Plan: R> trial of fleet enemas serial abdominal examination Code(s): K56.41 - FECAL IMPACTION
[2018-01-01] MEDS: SODIUM PHOSPHATE/NA BIPHOS 133 ML ENEMA PR SCH ×2 (18:46→22:52)
--- NOTE | 2018-01-01 22:26 | PN ---
Progress Note, Physician History of Present Illness: Pt w/ vomiting - Current Medication List Current Medications: Active Medications Acyclovir (Zovirax -) 400 mg PO BID [facility] Last Admin: 01/01/18 12:06 Dose: 400 mg Bisacodyl (Dulcolax -) 5 mg PO DAILY PRN PRN Reason: CONSTIPATION Fluconazole (Diflucan -) 200 mg PO DAILY [facility] Last Admin: 01/01/18 12:06 Dose: 200 mg Heparin Sodium (Porcine) (Heparin -) 5,000 unit SQ BID [facility] Last Admin: 01/01/18 21:21 Dose: Not Given Sodium Chloride (Normal Saline -) 1,000 mls @ 125 mls/hr IV ASDIR [facility] Last Admin: 01/01/18 21:10 Dose: 125 mls/hr Ketorolac Tromethamine (Toradol Injection -) 30 mg IVPB Q6H PRN PRN Reason: PAIN LEVEL 6-10 Stop: 01/05/18 16:18 Last Admin: 01/01/18 02:08 Dose: 30 mg Levetiracetam (Keppra Injection -) 250 mg IVPB Q8H-IV [facility] Last Admin: 01/01/18 17:51 Dose: 250 mg Levofloxacin (Levaquin -) 500 mg PO DAILY@0600 [facility] Last Admin: 01/01/18 05:39 Dose: Not Given Ondansetron HCl (Zofran Injection) 4 mg IVPUSH Q4H PRN PRN Reason: NAUSEA AND/OR VOMITING Last Admin: 01/01/18 18:55 Dose: 4 mg Sodium Phosphate (Fleet Adult Rectal Enema -) 133 ml RI Q4H [facility] Stop: 01/02/18 02:19 Last Admin: 01/01/18 18:46 Dose: 133 ml Tbo-Filgrastim (Granix -) 480 mcg SQ HS [facility] Last Admin: 12/31/17 23:53 Dose: 480 mcg - Objective Vital Signs: Vital Signs Temperature 98.1 F 01/01/18 16:17 Pulse Rate 109 H 01/01/18 16:17 Respiratory Rate 20 01/01/18 16:17 Blood Pressure 147/86 01/01/18 16:17 O2 Sat by Pulse Oximetry (%) 97 01/01/18 09:00 Constitutional: Yes: Well Nourished Neck: Yes: WNL, Supple Cardiovascular: Yes: WNL, Regular Rate and Rhythm Respiratory: Yes: WNL, Regular, CTA Bilaterally Gastrointestinal: Yes: Normal Bowel Sounds, Distention Labs: CBC, BMP 01/01/18 06:00 01/01/18 06:00 INR, PTT INR 1.06 (0.82-1.09) 12/31/17 06:30 Problem List - Problems (1) SBO (small bowel obstruction) Assessment/Plan: Cont IVF/NPO Pt did have bowel movement Cont golytely Code(s): K56.609 - UNSP INTESTNL OBST, UNSP TO PARTIAL VERSUS COMPLETE OBST (2) Leukopenia Assessment/Plan: Cont neupogen Code(s): D72.819 - DECREASED WHITE BLOOD CELL COUNT, UNSPECIFIED (3) Non-Hodgkin lymphoma Code(s): C85.90 - NON-HODGKIN LYMPHOMA, UNSPECIFIED, UNSPECIFIED SITE (4) History of seizures Assessment/Plan: Cont keppra IV Code(s): Z87.898 - PERSONAL HISTORY OF OTHER SPECIFIED CONDITIONS
[2018-01-01] MEDS: TBO-FILGRASTIM 480 MCG/0.8 ML DISP.SYRIN SQ SCH (22:48)
[2018-01-02] MEDS ORDERED: PROCHLORPERAZINE MALEATE 5 MG TABLET PO PRN (01:39)
[2018-01-02] MEDS: SODIUM PHOSPHATE/NA BIPHOS 133 ML ENEMA PR SCH (02:27)
[2018-01-02] MEDS: levETIRAcetam 500 MG/5 ML INJECTION VIAL IVPB SCH ×3 (02:27→18:31)
[2018-01-02 08:33] LABS: HEMATOCRIT 29.5 % (35.4-49); HEMOGLOBIN 10.4 GM/dL (11.7-16.9); MCH 33.5 pg (25.7-33.7); MCHC 35.3 g/dl (32.0-35.9); MEAN CELL VOLUME 94.9 fl (80-96); MEAN PLT VOLUME 8.7 fl (7.5-11.1); PLATELET COUNT 95 K/MM3 (134-434); RBC 3.11 M/mm3 (4.00-5.60); RDW 13.5 % (11.9-15.9); WHITE BLOOD COUNT 4.7 K/mm3 (4.0-10.0)
[2018-01-02] MEDS: SODIUM CHLORIDE 1,000 ML IV SCH ×3 (08:36→23:21)
[2018-01-02 11:00] LABS: CHLORIDE 102 mmol/L (98-107); POTASSIUM 3.3 mmol/L (3.5-5.1); SODIUM 136 mmol/L (136-145)
[2018-01-02 11:06] LABS: ANION GAP 10 (8-16); BLOOD UREA NITROGEN 19 mg/dL (7-18); CALCIUM 7.7 mg/dL (8.5-10.1); CO2 24 mmol/L (21-32); CREATININE 0.7 mg/dL (0.7-1.3); GLUCOSE,RANDOM 83 mg/dL (74-106)
[2018-01-02] MEDS: HEPARIN NA (PORCINE) 5,000 UNITS/ML 1ML VIAL SQ SCH ×2 (11:35→23:21)
[2018-01-02] MEDS: ACYCLOVIR 400 MG TABLET PO SCH ×2 (11:37→23:21)
[2018-01-02] MEDS: FLUCONAZOLE 100 MG TABLET (UD) PO SCH (11:38)
[2018-01-02 12:06] LABS: PLATELET ESTIMATE NORMAL
[2018-01-02] MEDS ORDERED: KCL 10 MEQ IVPB 10 MEQ/100 ML INFUS.BAG IVPB SCH (13:00)
--- NOTE | 2018-01-02 13:01 | PN ---
Progress Note (short form) - Note Progress Note: Patient seen and examined Had BM+ Constitutional: Yes: Well Nourished, No Distress, Calm Eyes: Yes: Conjunctiva Clear, EOM Intact HENT: Yes: Atraumatic, Normocephalic Neck: Yes: Supple Cardiovascular: Yes: Regular Rate and Rhythm. No: Bradycardia Respiratory: Yes: Regular, CTA Bilaterally Gastrointestinal: Yes: Normal Bowel Sounds, Abdomen, Obese, Distention. No: Ascites, Tenderness, Tenderness, Epigastrium, Vomiting Musculoskeletal: Yes: WNL Extremities: Yes: WNL Edema: No Temp Pulse Resp BP Pulse Ox 99.0 F 101 H 20 114/64 97 01/02/18 06:00 01/02/18 06:00 01/02/18 06:00 01/02/18 06:00 01/01/18 21:00 CBC, BMP 01/02/18 06:30 01/02/18 06:30 Current Medications Generic Name Dose Route Start Last Admin Trade Name Freq PRN Reason Stop Dose Admin Acyclovir 400 mg 12/31/17 22:00 01/02/18 11:37 Zovirax - PO Not Given BID [facility] Bisacodyl 5 mg 12/31/17 11:37 Dulcolax - PO DAILY PRN CONSTIPATION Fluconazole 200 mg 12/31/17 16:30 01/02/18 11:38 Diflucan - PO Not Given DAILY [facility] Heparin Sodium (Porcine) 5,000 unit 01/01/18 10:00 01/02/18 11:35 Heparin - SQ 5,000 unit BID [facility] Administration Sodium Chloride 1,000 mls @ 125 mls/hr 12/31/17 11:45 01/02/18 08:36 Normal Saline - IV 125 mls/hr ASDIR [facility] Administration Potassium Chloride 10 meq in 100 mls @ 100 mls/hr 01/02/18 13:00 Potassium Chloride 10 Meq Premix Ivpb - IVPB 01/02/18 14:59 Q60M [facility] Ketorolac Tromethamine 30 mg 12/31/17 16:19 01/01/18 02:08 Toradol Injection - IVPB 01/05/18 16:18 30 mg Q6H PRN Administration PAIN LEVEL 6-10 Levetiracetam 250 mg 01/01/18 18:00 01/02/18 11:36 Keppra Injection - IVPB 250 mg Q8H-IV [facility] Administration Levofloxacin 500 mg 12/31/17 16:15 01/02/18 06:11 Levaquin - PO 500 mg DAILY@0600 [facility] Administration Ondansetron HCl 4 mg 12/31/17 23:35 01/01/18 18:55 Zofran Injection IVPUSH 4 mg Q4H PRN Administration NAUSEA AND/OR VOMITING Prochlorperazine Maleate 10 mg 01/02/18 01:39 Compazine - PO Q6HPO PRN hiccups Tbo-Filgrastim 480 mcg 12/31/17 22:00 01/01/18 22:48 Granix - SQ 480 mcg HS [facility] Administration DLBCL ( recurrent ) , ABC subtype. s/p R_EPOCH as per pt, d/c from [place] last . c/w neupogen, expect lower counts through the next week OI ppx as ordered, pt will take daily CBC, platelets down trend f/u with his OP Medical oncologist at [facility] , has f/u on Wednesday. Severe Constipation: CT reviewed Presently on supportive care Plan per Surg/GI Problem List - Problems (1) History of non-Hodgkin's lymphoma Code(s): Z85.72 - PERSONAL HISTORY OF NON-HODGKIN LYMPHOMAS (2) SBO (small bowel obstruction) Code(s): K56.609 - UNSP INTESTNL OBST, UNSP TO PARTIAL VERSUS COMPLETE OBST (3) Constipation Code(s): K59.00 - CONSTIPATION, UNSPECIFIED Qualifiers: Constipation type: drug induced constipation Qualified Code(s): K59.03 - Drug induced constipation
--- NOTE | 2018-01-02 13:12 | PN ---
Progress Note, Physician Chief Complaint: abdominal pain History of Present Illness: 62yo male with PMH chronic constipation, Non-Hodgkin Lymphoma recently started dual agent chemotherapy presented to he emergency department complaining of generalized abdominal pain, nausea, hiccups, burping and abdominal distention. no acute events overnight, Multiple large volume loose stools reported. - Current Medication List Current Medications: Active Medications Acyclovir (Zovirax -) 400 mg PO BID [facility] Last Admin: 01/02/18 11:37 Dose: Not Given Bisacodyl (Dulcolax -) 5 mg PO DAILY PRN PRN Reason: CONSTIPATION Fluconazole (Diflucan -) 200 mg PO DAILY [facility] Last Admin: 01/02/18 11:38 Dose: Not Given Heparin Sodium (Porcine) (Heparin -) 5,000 unit SQ BID [facility] Last Admin: 01/02/18 11:35 Dose: 5,000 unit Sodium Chloride (Normal Saline -) 1,000 mls @ 125 mls/hr IV ASDIR [facility] Last Admin: 01/02/18 08:36 Dose: 125 mls/hr Potassium Chloride (Potassium Chloride 10 Meq Premix Ivpb -) 10 meq in 100 mls @ 100 mls/hr IVPB Q60M [facility] Stop: 01/02/18 14:59 Ketorolac Tromethamine (Toradol Injection -) 30 mg IVPB Q6H PRN PRN Reason: PAIN LEVEL 6-10 Stop: 01/05/18 16:18 Last Admin: 01/01/18 02:08 Dose: 30 mg Levetiracetam (Keppra Injection -) 250 mg IVPB Q8H-IV [facility] Last Admin: 01/02/18 11:36 Dose: 250 mg Levofloxacin (Levaquin -) 500 mg PO DAILY@0600 [facility] Last Admin: 01/02/18 06:11 Dose: 500 mg Ondansetron HCl (Zofran Injection) 4 mg IVPUSH Q4H PRN PRN Reason: NAUSEA AND/OR VOMITING Last Admin: 01/01/18 18:55 Dose: 4 mg Prochlorperazine Maleate (Compazine -) 10 mg PO Q6HPO PRN PRN Reason: hiccups Tbo-Filgrastim (Granix -) 480 mcg SQ HS [facility] Last Admin: 01/01/18 22:48 Dose: 480 mcg - Objective Vital Signs: Vital Signs Temperature 99.0 F 01/02/18 06:00 Pulse Rate 101 H 01/02/18 06:00 Respiratory Rate 20 01/02/18 06:00 Blood Pressure 114/64 01/02/18 06:00 O2 Sat by Pulse Oximetry (%) 97 01/01/18 21:00 Vital Signs Period Temp Pulse Resp BP Sys/Gonzalez Pulse Ox Last 24 Hr 98.1 F-99.0 F 92-111 18-20 114-147/64-86 97 Intake & Output 01/01/18 01/02/18 01/02/18 23:59 07:59 15:59 Intake Total 375 360 0 Balance 375 360 0 Intake: IV 375 Normal Saline - 1,000 ml 375 @ 125 mls/hr IV ASDIR [facility] Rx#:[id number] Oral 360 0 Other: Voiding Method Toilet Toilet # Unmeasured Voids Void 2 2 Bowel Movement Yes Yes Constitutional: Yes: Well Nourished, No Distress, Calm Eyes: Yes: Conjunctiva Clear, EOM Intact HENT: Yes: Atraumatic, Normocephalic Neck: Yes: Supple, Trachea Midline Cardiovascular: Yes: Regular Rate and Rhythm, S1, S2 Respiratory: Yes: Regular, CTA Bilaterally Gastrointestinal: Yes: Normal Bowel Sounds, Soft, Distention (distension improved and abdomen is softer) ...Rectal Exam: Yes: Deferred Edema: No Peripheral Pulses WNL: Yes Neurological: Yes: Alert, Oriented Psychiatric: Yes: Alert, Oriented Labs: CBC, BMP 01/02/18 06:30 01/02/18 06:30 INR, PTT INR 1.06 (0.82-1.09) 12/31/17 06:30 Problem List - Problems (1) Constipation Assessment/Plan: 62 yo male with NHL Fecal retention right and transverse colon, fecalization of IC valve functioning as an SBO. This is likely secondary to dehydration and constipation following his recent chemotherapy. Stool burden improved in right colon on todays xray. Bowel preop appears to have worked. advance to clear liquid diet for dinner, regular from breakfast correct electrolytes continued Golytely Bowel Prep as tolerated OOB walk around Abdominal Xray appreciate Dr. Robertson reccomendations may be discharged 01/03 at the discretion of the primary team on a bowel regimen (senna, colace, fiber, PO hydration) surgical follow up is not necessary Code(s): K59.00 - CONSTIPATION, UNSPECIFIED Qualifiers: Constipation type: drug induced constipation Qualified Code(s): K59.03 - Drug induced constipation (2) SBO (small bowel obstruction) Code(s): K56.609 - UNSP INTESTNL OBST, UNSP TO PARTIAL VERSUS COMPLETE OBST (3) Abdominal pain Code(s): R10.9 - UNSPECIFIED ABDOMINAL PAIN Qualifiers: Abdominal location: generalized Qualified Code(s): R10.84 - Generalized abdominal pain (4) History of non-Hodgkin's lymphoma Code(s): Z85.72 - PERSONAL HISTORY OF NON-HODGKIN LYMPHOMAS (5) Hemorrhoids Code(s): K64.9 - UNSPECIFIED HEMORRHOIDS
[2018-01-02] MEDS: POTASSIUM CHLORIDE 10 MEQ in SODIUM CHLORIDE 100 ML IVPB SCH ×2 (14:18→15:33)
--- NOTE | 2018-01-02 21:58 | PN ---
Progress Note, Physician History of Present Illness: Pt had small liquid BM today Pt also having hiccups - Current Medication List Current Medications: Active Medications Acyclovir (Zovirax -) 400 mg PO BID [facility] Last Admin: 01/02/18 11:37 Dose: Not Given Bisacodyl (Dulcolax -) 5 mg PO DAILY PRN PRN Reason: CONSTIPATION Fluconazole (Diflucan -) 200 mg PO DAILY [facility] Last Admin: 01/02/18 11:38 Dose: Not Given Heparin Sodium (Porcine) (Heparin -) 5,000 unit SQ BID [facility] Last Admin: 01/02/18 11:35 Dose: 5,000 unit Sodium Chloride (Normal Saline -) 1,000 mls @ 125 mls/hr IV ASDIR [facility] Last Admin: 01/02/18 14:10 Dose: Not Given Ketorolac Tromethamine (Toradol Injection -) 30 mg IVPB Q6H PRN PRN Reason: PAIN LEVEL 6-10 Stop: 01/05/18 16:18 Last Admin: 01/01/18 02:08 Dose: 30 mg Levetiracetam (Keppra Injection -) 250 mg IVPB Q8H-IV [facility] Last Admin: 01/02/18 18:31 Dose: 250 mg Levofloxacin (Levaquin -) 500 mg PO DAILY@0600 [facility] Last Admin: 01/02/18 06:11 Dose: 500 mg Ondansetron HCl (Zofran Injection) 4 mg IVPUSH Q4H PRN PRN Reason: NAUSEA AND/OR VOMITING Last Admin: 01/01/18 18:55 Dose: 4 mg Prochlorperazine Maleate (Compazine -) 10 mg PO Q6HPO PRN PRN Reason: hiccups Tbo-Filgrastim (Granix -) 480 mcg SQ HS [facility] Last Admin: 01/01/18 22:48 Dose: 480 mcg - Objective Vital Signs: Vital Signs Temperature 98.1 F 01/02/18 20:36 Pulse Rate 96 H 01/02/18 20:36 Respiratory Rate 20 01/02/18 20:36 Blood Pressure 140/80 01/02/18 20:36 O2 Sat by Pulse Oximetry (%) 96 01/02/18 20:36 HENT: Yes: WNL Neck: Yes: WNL, Supple Cardiovascular: Yes: WNL, Regular Rate and Rhythm Respiratory: Yes: WNL, Regular, CTA Bilaterally Gastrointestinal: Yes: Normal Bowel Sounds, Distention Labs: CBC, BMP 01/02/18 06:30 01/02/18 06:30 INR, PTT INR 1.06 (0.82-1.09) 12/31/17 06:30 Problem List - Problems (1) SBO (small bowel obstruction) Assessment/Plan: Cont IVF Advance diet as per surgery Check abdominal xray in am Cont dulcolax Code(s): K56.609 - UNSP INTESTNL OBST, UNSP TO PARTIAL VERSUS COMPLETE OBST (2) Leukopenia Assessment/Plan: Cont neupogen Code(s): D72.819 - DECREASED WHITE BLOOD CELL COUNT, UNSPECIFIED (3) Non-Hodgkin lymphoma Code(s): C85.90 - NON-HODGKIN LYMPHOMA, UNSPECIFIED, UNSPECIFIED SITE (4) History of seizures Assessment/Plan: Will change to po keppra in am Code(s): Z87.898 - PERSONAL HISTORY OF OTHER SPECIFIED CONDITIONS (5) Intractable hiccups Code(s): R06.6 - HICCOUGH
[2018-01-02] MEDS: TBO-FILGRASTIM 480 MCG/0.8 ML DISP.SYRIN SQ SCH (23:20)
[2018-01-03] MEDS: levETIRAcetam 500 MG/5 ML INJECTION VIAL IVPB SCH (02:10)
[2018-01-03] MEDS ORDERED: levETIRAcetam XR 750 MG TAB PO SCH ×2 (07:00→22:00)
[2018-01-03 08:18] LABS: HEMATOCRIT 28.5 % (35.4-49); HEMOGLOBIN 9.9 GM/dL (11.7-16.9); MCHC 34.7 g/dl (32.0-35.9); MEAN CELL VOLUME 95.1 fl (80-96); MEAN PLT VOLUME 8.6 fl (7.5-11.1); PLATELET COUNT 123 K/MM3 (134-434); RDW 13.6 % (11.9-15.9); WHITE BLOOD COUNT 13.6 K/mm3 (4.0-10.0)
[2018-01-03 08:46] LABS: ANION GAP 7 (8-16); BLOOD UREA NITROGEN 8 mg/dL (7-18); CALCIUM 7.6 mg/dL (8.5-10.1); CHLORIDE 100 mmol/L (98-107); CO2 27 mmol/L (21-32); CREATININE 0.6 mg/dL (0.7-1.3); GLUCOSE,RANDOM 77 mg/dL (74-106); LDH 219 U/L (87-241); POTASSIUM 3.2 mmol/L (3.5-5.1); SODIUM 134 mmol/L (136-145)
[2018-01-03] MEDS: HEPARIN NA (PORCINE) 5,000 UNITS/ML 1ML VIAL SQ SCH ×2 (10:35→22:37)
[2018-01-03] MEDS: FLUCONAZOLE 100 MG TABLET (UD) PO SCH (10:35)
[2018-01-03] MEDS ORDERED: PT OWN MED DRAWER 7, Y5N ONE (10:47)
[2018-01-03] MEDS: ACYCLOVIR 400 MG TABLET PO SCH ×2 (10:48→22:38)
--- NOTE | 2018-01-03 11:31 | PN ---
Progress Note, Physician Chief Complaint: abdominal pain History of Present Illness: 62yo male with PMH chronic constipation, Non-Hodgkin Lymphoma recently started dual agent chemotherapy presented to he emergency department complaining of generalized abdominal pain, nausea, hiccups, burping and abdominal distention. no acute events overnight, Multiple large volume loose stools reported. Tolerating regular diet. He still has abdominal distension. - Current Medication List Current Medications: Active Medications Acyclovir (Zovirax -) 400 mg PO BID [facility] Last Admin: 01/03/18 10:48 Dose: 400 mg Bisacodyl (Dulcolax -) 5 mg PO DAILY PRN PRN Reason: CONSTIPATION Last Admin: 01/03/18 10:34 Dose: 5 mg Fluconazole (Diflucan -) 200 mg PO DAILY [facility] Last Admin: 01/03/18 10:35 Dose: 200 mg Heparin Sodium (Porcine) (Heparin -) 5,000 unit SQ BID [facility] Last Admin: 01/03/18 10:35 Dose: 5,000 unit Sodium Chloride (Normal Saline -) 1,000 mls @ 125 mls/hr IV ASDIR [facility] Last Admin: 01/02/18 23:21 Dose: 125 mls/hr Ketorolac Tromethamine (Toradol Injection -) 30 mg IVPB Q6H PRN PRN Reason: PAIN LEVEL 6-10 Stop: 01/05/18 16:18 Last Admin: 01/01/18 02:08 Dose: 30 mg Levetiracetam (Keppra Xr -) 750 mg PO AM [facility] Last Admin: 01/03/18 07:17 Dose: Not Given Levofloxacin (Levaquin -) 500 mg PO DAILY@0600 [facility] Last Admin: 01/03/18 07:13 Dose: 500 mg Ondansetron HCl (Zofran Injection) 4 mg IVPUSH Q4H PRN PRN Reason: NAUSEA AND/OR VOMITING Last Admin: 01/01/18 18:55 Dose: 4 mg Prochlorperazine Maleate (Compazine -) 10 mg PO Q6HPO PRN PRN Reason: hiccups Tbo-Filgrastim (Granix -) 480 mcg SQ HS [facility] Last Admin: 01/02/18 23:20 Dose: 480 mcg - Objective Vital Signs: Vital Signs Temperature 98.8 F 01/03/18 06:00 Pulse Rate 85 01/03/18 06:00 Respiratory Rate 20 01/03/18 06:00 Blood Pressure 113/63 01/03/18 06:00 O2 Sat by Pulse Oximetry (%) 96 01/02/18 20:36 Constitutional: Yes: No Distress, Calm Eyes: Yes: Conjunctiva Clear, EOM Intact HENT: Yes: Atraumatic, Normocephalic Neck: Yes: Supple, Trachea Midline Cardiovascular: Yes: Regular Rate and Rhythm, S1, S2 Respiratory: Yes: Regular, CTA Bilaterally Gastrointestinal: Yes: Normal Bowel Sounds, Soft, Distention. No: Tenderness, Tenderness, Epigastrium, Tenderness, Rebound ...Rectal Exam: Yes: Deferred Genitourinary: No: CVA Tenderness - Left, CVA Tenderness - Right Extremities: No: Cool, Cyanosis Neurological: Yes: Alert, Oriented Psychiatric: Yes: Alert, Oriented Labs: CBC, BMP 01/03/18 07:00 01/03/18 07:00 INR, PTT INR 1.06 (0.82-1.09) 12/31/17 06:30 - ....Imaging X-ray: Report Reviewed, Image Reviewed (distended loops SB consistent with ileus ) Problem List - Problems (1) Ileus, unspecified Assessment/Plan: 62 yo male with NHL Fecal retention right and transverse colon, fecalization of IC valve functioning as an SBO. This is likely secondary to dehydration and constipation following his recent chemotherapy. Stool burden improved in right colon on todays xray. Bowel preop appears to have worked. WBC today is 13? likely neupogen. regular diet as tolerated correct electrolytes OOB walk around Abdominal Xray appreciate Dr. Marcelo nortonations may be discharged 01/03 at the discretion of the primary team on a bowel regimen (senna, colace, fiber, PO hydration) surgical follow up is not necessary Code(s): K56.7 - ILEUS, UNSPECIFIED (2) Constipation Code(s): K59.00 - CONSTIPATION, UNSPECIFIED Qualifiers: Constipation type: drug induced constipation Qualified Code(s): K59.03 - Drug induced constipation (3) SBO (small bowel obstruction) Code(s): K56.609 - UNSP INTESTNL OBST, UNSP TO PARTIAL VERSUS COMPLETE OBST (4) Abdominal pain Code(s): R10.9 - UNSPECIFIED ABDOMINAL PAIN Qualifiers: Abdominal location: generalized Qualified Code(s): R10.84 - Generalized abdominal pain (5) History of non-Hodgkin's lymphoma Code(s): Z85.72 - PERSONAL HISTORY OF NON-HODGKIN LYMPHOMAS (6) Hemorrhoids Code(s): K64.9 - UNSPECIFIED HEMORRHOIDS
[2018-01-03 14:33] LABS: PLATELET ESTIMATE DECREASED
--- NOTE | 2018-01-03 16:11 | PN ---
Progress Note, Physician Chief Complaint: Constipation with abdominal distention History of Present Illness: patient less distended s/p kevin bowel movement 2/2 bowel preps. Denies abdominal pain, nausea, vomiting, pt. afebrile. most recent abdomen X-ray showed negative obstruction with no fecal impaction. - Current Medication List Current Medications: Active Medications Acyclovir (Zovirax -) 400 mg PO BID [facility] Last Admin: 01/03/18 10:48 Dose: 400 mg Bisacodyl (Dulcolax -) 5 mg PO DAILY PRN PRN Reason: CONSTIPATION Last Admin: 01/03/18 10:34 Dose: 5 mg Fluconazole (Diflucan -) 200 mg PO DAILY [facility] Last Admin: 01/03/18 10:35 Dose: 200 mg Heparin Sodium (Porcine) (Heparin -) 5,000 unit SQ BID [facility] Last Admin: 01/03/18 10:35 Dose: 5,000 unit Sodium Chloride (Normal Saline -) 1,000 mls @ 125 mls/hr IV ASDIR [facility] Last Admin: 01/02/18 23:21 Dose: 125 mls/hr Ketorolac Tromethamine (Toradol Injection -) 30 mg IVPB Q6H PRN PRN Reason: PAIN LEVEL 6-10 Stop: 01/05/18 16:18 Last Admin: 01/01/18 02:08 Dose: 30 mg Levetiracetam (Keppra Xr -) 750 mg PO AM [facility] Last Admin: 01/03/18 07:17 Dose: Not Given Levofloxacin (Levaquin -) 500 mg PO DAILY@0600 [facility] Last Admin: 01/03/18 07:13 Dose: 500 mg Ondansetron HCl (Zofran Injection) 4 mg IVPUSH Q4H PRN PRN Reason: NAUSEA AND/OR VOMITING Last Admin: 01/01/18 18:55 Dose: 4 mg Prochlorperazine Maleate (Compazine -) 10 mg PO Q6HPO PRN PRN Reason: hiccups Tbo-Filgrastim (Granix -) 480 mcg SQ HS [facility] Last Admin: 01/02/18 23:20 Dose: 480 mcg - Objective Vital Signs: Vital Signs Temperature 98.2 F 01/03/18 15:47 Pulse Rate 86 01/03/18 15:47 Respiratory Rate 18 01/03/18 15:47 Blood Pressure 116/69 01/03/18 15:47 O2 Sat by Pulse Oximetry (%) 96 01/02/18 20:36 Constitutional: Yes: Well Nourished, No Distress, Calm Eyes: Yes: Conjunctiva Clear HENT: Yes: Atraumatic Cardiovascular: Yes: Regular Rate and Rhythm Respiratory: Yes: Regular, CTA Bilaterally Gastrointestinal: Yes: Normal Bowel Sounds, Distention (improving), Tenderness. No: Tenderness, Epigastrium, Tenderness, Rebound, Vomiting Labs: CBC, BMP 01/03/18 07:00 01/03/18 07:00 INR, PTT INR 1.06 (0.82-1.09) 12/31/17 06:30 Problem List - Problems (1) IBS (irritable bowel syndrome) Assessment/Plan: associated with constipation Recommendation: flagyl 250mg PO tid for 14 days Lactose free low fiber diet Linzess 290mcg daily 2 weeks f/u in the office Code(s): K58.9 - IRRITABLE BOWEL SYNDROME WITHOUT DIARRHEA
[2018-01-03] MEDS: SODIUM CHLORIDE 1,000 ML IV SCH (16:15)
[2018-01-03] MEDS ORDERED: MAGNESIUM CITRATE 300 ML BOTTLE PO ONE (16:47)
[2018-01-03] MEDS: POTASSIUM CHLORIDE 10 MEQ in SODIUM CHLORIDE 100 ML IVPB SCH ×3 (17:24→22:37)
--- NOTE | 2018-01-03 19:40 | PN ---
Progress Note, Physician History of Present Illness: Pt tolerating diet but had slight abdominal distension - Current Medication List Current Medications: Active Medications Acyclovir (Zovirax -) 400 mg PO BID [facility] Last Admin: 01/03/18 10:48 Dose: 400 mg Bisacodyl (Dulcolax -) 5 mg PO DAILY PRN PRN Reason: CONSTIPATION Last Admin: 01/03/18 10:34 Dose: 5 mg Fluconazole (Diflucan -) 200 mg PO DAILY [facility] Last Admin: 01/03/18 10:35 Dose: 200 mg Heparin Sodium (Porcine) (Heparin -) 5,000 unit SQ BID [facility] Last Admin: 01/03/18 10:35 Dose: 5,000 unit Ketorolac Tromethamine (Toradol Injection -) 30 mg IVPB Q6H PRN PRN Reason: PAIN LEVEL 6-10 Stop: 01/05/18 16:18 Last Admin: 01/01/18 02:08 Dose: 30 mg Levetiracetam (Keppra Xr -) 750 mg PO [facility] Levofloxacin (Levaquin -) 500 mg PO DAILY@0600 [facility] Last Admin: 01/03/18 07:13 Dose: 500 mg Metronidazole (Flagyl -) 250 mg PO TID [facility] Stop: 01/18/18 07:59 Ondansetron HCl (Zofran Injection) 4 mg IVPUSH Q4H PRN PRN Reason: NAUSEA AND/OR VOMITING Last Admin: 01/01/18 18:55 Dose: 4 mg Prochlorperazine Maleate (Compazine -) 10 mg PO Q6HPO PRN PRN Reason: hiccups Tbo-Filgrastim (Granix -) 480 mcg SQ [facility] Last Admin: 01/02/18 23:20 Dose: 480 mcg - Objective Vital Signs: Vital Signs Temperature 98.2 F 01/03/18 15:47 Pulse Rate 86 01/03/18 15:47 Respiratory Rate 18 01/03/18 15:47 Blood Pressure 116/69 01/03/18 15:47 O2 Sat by Pulse Oximetry (%) 99 01/03/18 09:00 Constitutional: Yes: No Distress Neck: Yes: WNL, Supple Cardiovascular: Yes: WNL, Regular Rate and Rhythm Respiratory: Yes: WNL, Regular, CTA Bilaterally Gastrointestinal: Yes: WNL, Normal Bowel Sounds, Soft, Distention Labs: CBC, BMP 01/03/18 07:00 01/03/18 07:00 INR, PTT INR 1.06 (0.82-1.09) 12/31/17 06:30 Problem List - Problems (1) SBO (small bowel obstruction) Assessment/Plan: Abdominal xray did not show SBO Cont dulcolax Pt given MgCitrate Pt started on falgyl for 2 weeks Code(s): K56.609 - UNSP INTESTNL OBST, UNSP TO PARTIAL VERSUS COMPLETE OBST (2) Leukopenia Assessment/Plan: Cont neupogen Code(s): D72.819 - DECREASED WHITE BLOOD CELL COUNT, UNSPECIFIED (3) Non-Hodgkin lymphoma Code(s): C85.90 - NON-HODGKIN LYMPHOMA, UNSPECIFIED, UNSPECIFIED SITE (4) History of seizures Assessment/Plan: Changed to PO keppra Code(s): Z87.898 - PERSONAL HISTORY OF OTHER SPECIFIED CONDITIONS (5) Intractable hiccups Code(s): R06.6 - HICCOUGH
--- NOTE | 2018-01-03 23:45 | PN ---
Progress Note (short form) - Note Progress Note: Patient seen and examiend still with some abdominal distention Last Vital Signs Temp Pulse Resp BP Pulse Ox 98.0 F 91 H 20 135/77 99 01/03/18 17:18 01/03/18 17:18 01/03/18 17:18 01/03/18 17:18 01/03/18 09:00 Cor: RSR, No murmurs, No gallops Lungs: Clear to P&A Abd: Soft, Normal bowel sounds, No organomegaly Ext:No significant edema Abnormal Lab Results 01/03/18 01/03/18 07:00 07:00 WBC 13.6 H D RBC 3.00 L Hgb 9.9 L Hct 28.5 L Plt Count 123 L D Sodium 134 L Potassium 3.2 L Anion Gap 7 L Creatinine 0.6 L Calcium 7.6 L Active Medications Generic Name Dose Route Start Last Admin Trade Name Freq PRN Reason Stop Dose Admin Acyclovir 400 mg 12/31/17 22:00 01/03/18 22:38 Zovirax - PO 400 mg BID [facility] Administration Bisacodyl 5 mg 12/31/17 11:37 01/03/18 10:34 Dulcolax - PO 5 mg DAILY PRN Administration CONSTIPATION Fluconazole 200 mg 12/31/17 16:30 01/03/18 10:35 Diflucan - PO 200 mg DAILY [facility] Administration Heparin Sodium (Porcine) 5,000 unit 01/01/18 10:00 01/03/18 22:37 Heparin - SQ 5,000 unit BID [facility] Administration Ketorolac Tromethamine 30 mg 12/31/17 16:19 01/01/18 02:08 Toradol Injection - IVPB 01/05/18 16:18 30 mg Q6H PRN Administration PAIN LEVEL 6-10 Levetiracetam 750 mg 01/03/18 22:00 01/03/18 22:38 Keppra Xr - PO 750 mg HS [facility] Administration Levofloxacin 500 mg 12/31/17 16:15 01/03/18 07:13 Levaquin - PO 500 mg DAILY@0600 [facility] Administration Metronidazole 250 mg 01/04/18 08:00 Flagyl - PO 01/18/18 07:59 TID [facility] Ondansetron HCl 4 mg 12/31/17 23:35 01/01/18 18:55 Zofran Injection IVPUSH 4 mg Q4H PRN Administration NAUSEA AND/OR VOMITING Prochlorperazine Maleate 10 mg 01/02/18 01:39 Compazine - PO Q6HPO PRN hiccups A/p 62 y/o patient with DLBCL ( recurrent ) , ABC subtype. s/p R_EPOCH as per pt, d/c from [place] last weekend. stop neupogen--wbc 13,000 severe constipation ? related to vincristine ? colonic ileus no guarding/rigidity/tenderness on exam monitor AXR Surgery/GI follow up discussed with patient
[2018-01-04 08:42] LABS: HEMOGLOBIN 10.9 GM/dL (11.7-16.9); MCH 33.1 pg (25.7-33.7); MCHC 35.2 g/dl (32.0-35.9); MEAN CELL VOLUME 93.9 fl (80-96); MEAN PLT VOLUME 8.2 fl (7.5-11.1); PLATELET COUNT 168 K/MM3 (134-434); RDW 13.7 % (11.9-15.9); WHITE BLOOD COUNT 18.5 K/mm3 (4.0-10.0)
[2018-01-04 08:58] LABS: CHLORIDE 96 mmol/L (98-107); POTASSIUM 3.2 mmol/L (3.5-5.1); SODIUM 134 mmol/L (136-145)
[2018-01-04 09:04] LABS: ALK PHOS 118 U/L (45-117); ANION GAP 11 (8-16); BILIRUBIN,TOTAL 0.5 mg/dL (0.2-1.0); BLOOD UREA NITROGEN 6 mg/dL (7-18); CO2 27 mmol/L (21-32); CREATININE 0.6 mg/dL (0.7-1.3); GLUCOSE,RANDOM 89 mg/dL (74-106); SGOT/AST 27 U/L (15-37); SGPT/ALT 49 U/L (12-78); TOT PROT 5.5 g/dl (6.4-8.2)
[2018-01-04] MEDS ORDERED: PT OWN MED DRAWER 7, Y5N ONE (09:33)
[2018-01-04] MEDS: metroNIDAZOLE 250 MG TABLET PO SCH ×2 (09:49→14:11)
[2018-01-04] MEDS: FLUCONAZOLE 100 MG TABLET (UD) PO SCH (09:50)
[2018-01-04] MEDS: ACYCLOVIR 400 MG TABLET PO SCH (09:51)
[2018-01-04] MEDS: HEPARIN NA (PORCINE) 5,000 UNITS/ML 1ML VIAL SQ SCH (09:51)
--- NOTE | 2018-01-04 10:58 | PN ---
Progress Note, Physician Chief Complaint: abdominal pain History of Present Illness: 62yo male with PMH chronic constipation, Non-Hodgkin Lymphoma recently started dual agent chemotherapy presented to he emergency department complaining of generalized abdominal pain, nausea, hiccups, burping and abdominal distention. no acute events overnight, Multiple large volume loose stools reported. Tolerating regular diet. He still has abdominal distension. - Current Medication List Current Medications: Active Medications Acyclovir (Zovirax -) 400 mg PO BID [facility] Last Admin: 01/04/18 09:51 Dose: 400 mg Bisacodyl (Dulcolax -) 5 mg PO DAILY PRN PRN Reason: CONSTIPATION Last Admin: 01/03/18 10:34 Dose: 5 mg Fluconazole (Diflucan -) 200 mg PO DAILY [facility] Last Admin: 01/04/18 09:50 Dose: 200 mg Heparin Sodium (Porcine) (Heparin -) 5,000 unit SQ BID [facility] Last Admin: 01/04/18 09:51 Dose: 5,000 unit Ketorolac Tromethamine (Toradol Injection -) 30 mg IVPB Q6H PRN PRN Reason: PAIN LEVEL 6-10 Stop: 01/05/18 16:18 Last Admin: 01/01/18 02:08 Dose: 30 mg Levetiracetam (Keppra Xr -) 750 mg PO HS [facility] Last Admin: 01/03/18 22:38 Dose: 750 mg Levofloxacin (Levaquin -) 500 mg PO DAILY@0600 [facility] Last Admin: 01/04/18 06:27 Dose: 500 mg Metronidazole (Flagyl -) 250 mg PO TID [facility] Stop: 01/18/18 07:59 Last Admin: 01/04/18 09:49 Dose: 250 mg Ondansetron HCl (Zofran Injection) 4 mg IVPUSH Q4H PRN PRN Reason: NAUSEA AND/OR VOMITING Last Admin: 01/01/18 18:55 Dose: 4 mg Prochlorperazine Maleate (Compazine -) 10 mg PO Q6HPO PRN PRN Reason: hiccups - Objective Vital Signs: Vital Signs Temperature 99.1 F 01/04/18 06:00 Pulse Rate 85 01/04/18 06:00 Respiratory Rate 20 01/04/18 06:00 Blood Pressure 131/75 01/04/18 06:00 O2 Sat by Pulse Oximetry (%) 98 01/03/18 21:00 Vital Signs Period Temp Pulse Resp BP Sys/Gonzalez Pulse Ox Last 24 Hr 98.0 F-99.1 F 85-93 18-20 116-155/69-78 98 Labs: CBC, BMP 01/04/18 07:00 01/04/18 07:00 INR, PTT INR 1.06 (0.82-1.09) 12/31/17 06:30 Problem List - Problems (1) Ileus, unspecified Assessment/Plan: 62 yo male with NHL Fecal retention right and transverse colon, fecalization of IC valve functioning as an SBO. This is likely secondary to dehydration and constipation following his recent chemotherapy. Stool burden improved in right colon on todays xray. Bowel preop appears to have worked. WBC today is 13? likely neupogen. regular diet as tolerated correct electrolytes OOB walk around Abdominal Xray appreciate Dr. Robertson reccomendations may be discharged 01/03 at the discretion of the primary team on a bowel regimen (senna, colace, fiber, PO hydration) surgical follow up is not necessary Code(s): K56.7 - ILEUS, UNSPECIFIED (2) Constipation Code(s): K59.00 - CONSTIPATION, UNSPECIFIED Qualifiers: Constipation type: drug induced constipation Qualified Code(s): K59.03 - Drug induced constipation (3) SBO (small bowel obstruction) Code(s): K56.609 - UNSP INTESTNL OBST, UNSP TO PARTIAL VERSUS COMPLETE OBST (4) Abdominal pain Code(s): R10.9 - UNSPECIFIED ABDOMINAL PAIN Qualifiers: Abdominal location: generalized Qualified Code(s): R10.84 - Generalized abdominal pain (5) History of non-Hodgkin's lymphoma Code(s): Z85.72 - PERSONAL HISTORY OF NON-HODGKIN LYMPHOMAS (6) Hemorrhoids Code(s): K64.9 - UNSPECIFIED HEMORRHOIDS
[2018-01-04 12:00] LABS: PLATELET ESTIMATE ADEQUATE
[2018-01-04] MEDS: POTASSIUM CHLORIDE 10 MEQ in SODIUM CHLORIDE 100 ML IVPB SCH ×3 (14:09→16:36)
[2018-01-04 17:53] VITALS: BP 147/79; PULSE 79; TEMP 97.7
--- NOTE | 2018-01-04 20:58 | DS ---
Physical Examination Vital Signs: Vital Signs Temperature 97.7 F 01/04/18 17:52 Pulse Rate 79 01/04/18 17:52 Respiratory Rate 18 01/04/18 17:52 Blood Pressure 147/79 01/04/18 17:52 O2 Sat by Pulse Oximetry (%) 98 01/04/18 09:00 Labs: CBC, BMP 01/04/18 07:00 01/04/18 07:00 Discharge Summary Reason For Visit: SMALL BOWEL OBSTRUCTION Condition: Good - Instructions Diet, Activity, Other Instructions: lactulose free low fiber diet, lactose restricted diet Flagyl antibiotic for [address] Aguilera this week Referrals: Ray Madrid MD [Staff Physician] - Joshua Aguilera MD [Primary Care Provider] - Disposition: HOME - Home Medications Comprehensive Discharge Medication List: Ambulatory Orders Acyclovir [Zovirax -] 1 tab PO BID 12/31/17 Ciprofloxacin HCl [Cipro] 1 tab PO BID 12/31/17 Filgrastim [Neupogen -] 1 syringe SQ HS 12/31/17 Fluconazole 200 mg PO DAILY 12/31/17 Levetiracetam [Keppra Xr -] 750 mg PO DAILY 12/31/17 Prochlorperazine Maleate [Compazine] 10 mg PO QID PRN 12/31/17 Acyclovir [Zovirax -] 400 mg PO BID tablet 01/03/18 Docusate Sodium [Colace] 100 mg PO TID #90 capsule 01/03/18 Fluconazole [Diflucan -] 200 mg PO DAILY tablet 01/03/18 Prochlorperazine Maleate [Compazine -] 10 mg PO Q6HPO PRN #20 tablet 01/03/18 Sennosides [Senna] 8.6 mg PO BID #60 tablet 01/03/18 Tbo-Filgrastim [Granix -] 480 mcg SQ HS disp.syrin 01/03/18 levETIRAcetam [Levetiracetam -] 750 mg PO AM tab.er.24h 01/03/18 metroNIDAZOLE [Flagyl -] 250 mg PO TID #42 tablet 01/03/18 Potassium Chloride [K-Dur -] 20 meq PO DAILY #30 tablet.er 01/04/18
== END 2018-01-04 18:27 | disposition home or self-care (01) | DRG 247 ==
LOC: JER 05:43 → JERBED 10:58 → J8W 12:09
PROVIDERS: ADMIT Internal Medicine; ATTEND Internal Medicine
DX: K56.609 Unspecified intestinal obstruction, unspecified as to partial versus complete obstruction (principal); D72.819 Decreased white blood cell count, unspecified; K59.00 Constipation, unspecified; K64.9 Unspecified hemorrhoids; E86.0 Dehydration; K56.41 Fecal impaction; I25.10 Atherosclerotic heart disease of native coronary artery without angina pectoris; I10 Essential (primary) hypertension; K56.7 Ileus, unspecified; Z85.72 Personal history of non-Hodgkin lymphomas
CPT/HCPCS: 36415; 74019-TC-FY; 74021-TC-FY; 74177-TC; 80048; 80053; 81003; 83615; 83690; 83735; 84100; 84550; 85025; 85610; 85730; 86850; 86900; 86901; 87086; 93005; 93010; 99284-25; J1447; J1644; J7030

== ENCOUNTER 2019-09-22 14:24 | Emergency (ER) | payer BC, OTHER ==
[2019-09-22 14:47] VITALS: BMI 23.6
--- NOTE | 2019-09-22 16:10 | PDOC ---
History of Present Illness - General Chief Complaint: Back Pain Stated Complaint: BACK PAIN Time Seen by Provider: 09/22/19 14:48 - History of Present Illness Initial Comments: 09/22/19 17:49 64 y/o M hx of non-hodgkins lymphoma (chemotherapy in 2018), CAD, HTN, AAA, seizure disorder, presenting to the ER with 5 days of lower back pain. He denies any sudden increase in activity at the time of onset, falls or injuries. Pain was initially intermittent but is now constant. worsened by movement and walking and somewhat relieved with rest and non-radiating. He has taken 1000mg of tylenol today, with no relief at this time. He denies any fevers, chills, IV drug use, bowel or bladder incontinence, nausea, vomiting,diarrhea, bloody stools. Past History - Past Medical History Allergies/Adverse Reactions: Allergies Allergy/AdvReac Type Severity Reaction Status Date / Time No Known Drug Allergies Allergy Verified 12/31/17 05:57 Home Medications: Ambulatory Orders levETIRAcetam [Levetiracetam -] 750 mg PO AM tab.er.24h 01/03/18 Lidocaine 5% Patch [Lidoderm -] 1 patch TP DAILY #7 patch 09/22/19 Methocarbamol [Robaxin -] 750 mg PO QID 7 Days #28 tablet 09/22/19 Anemia: Yes Asthma: No Cancer: No Cardiac Disorders: Yes (AORTIC ANEURYSM) CVA: No COPD: No CHF: No ((FOLLOWED BY DR GREEN) Dementia: No Diabetes: No GI Disorders: Yes (BLOATED, hemmorhoids) Disorders: No HTN: No Hypercholesterolemia: No Liver Disease: No Seizures: Yes (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, FLASHES LAST WEDNESDAY) Thyroid Disease: No - Surgical History Abdominal Surgery: No Appendectomy: No Cardiac Surgery: Yes (ANGIOPLASTY) Cholecystectomy: Yes () Lung Surgery: No Neurologic Surgery: No Orthopedic Surgery: No - Immunization History Immunization Up to Date: No - Psycho Social/Smoking Cessation Hx Smoking Status: Yes Smoking History: Never smoked Have you smoked in the past 12 months: No Number of Cigarettes Smoked Daily: 10 If you are a former smoker, when did you quit?: 1980s Cigars Per Day: 3 Information on smoking cessation initiated: No Hx Alcohol Use: No Drug/Substance Use Hx: No Substance Use Type: None Hx Substance Use Treatment: No Review of Systems - Review of Systems Constitutional: No: Chills, Fever HEENTM: No: Eye Pain, Blurred Vision Respiratory: No: Cough, Shortness of Breath Cardiac (ROS): No: Chest Pain, Lightheadedness ABD/GI: No: Diarrhea, Vomiting : No: Burning, Dysuria Musculoskeletal: Yes: Back Pain Neurological: No: Headache, Numbness *Physical Exam - Vital Signs Last Vital Signs Temp Pulse Resp BP Pulse Ox 97.9 F 88 16 110/68 98 09/22/19 14:44 09/22/19 14:44 09/22/19 14:44 09/22/19 14:44 09/22/19 14:44 - Physical Exam 09/22/19 17:09 PE: GENERAL: Awake, alert, and fully oriented, in no acute distress HEAD: No signs of trauma, normocephalic, atraumatic EYES: EOMI, sclera anicteric, conjunctiva clear ENT: Auricles normal inspection, hearing grossly normal, nares patent, oropharynx clear without exudates. Moist mucosa NECK: Normal ROM, supple, no lymphadenopathy, JVD, or masses LUNGS: No distress, speaks full sentences, clear to auscultation bilaterally HEART: Regular rate and rhythm, normal S1 and S2, no murmurs, rubs or gallops, peripheral pulses normal and equal bilaterally. ABDOMEN: Soft, nontender, normoactive bowel sounds. No guarding, no rebound. No masses. left sided flank tenderness EXTREMITIES : Normal inspection, Normal range of motion, no edema. No clubbing or cyanosis BACK: increased pain on right straight leg raise. Increased pain with ambulation. NEUROLOGICAL: Cranial nerves II through XII grossly intact. Normal speech, no focal sensorimotor deficits SKIN: Warm, Dry, normal turgor, no rashes or lesions noted ED Treatment Course - LABORATORY CBC & Chemistry Diagram: 09/22/19 17:09 09/22/19 17:09 Medical Decision Making - Medical Decision Making 09/22/19 21:[address] no fractures seen discharging with lidocaine patch and robaxin prescription Discharge - Discharge Information Problems reviewed: Yes Clinical Impression/Diagnosis: Back pain Qualifiers: Back pain location: low back pain Chronicity: acute Back pain laterality: unspecified Sciatica presence: without sciatica Qualified Code(s): M54.5 - Low back pain Condition: Improved Disposition: HOME - Admission No - Additional Discharge Information Prescriptions: Lidocaine 5% Patch [Lidoderm -] 1 patch TP DAILY #7 patch Methocarbamol [Robaxin -] 750 mg PO QID 7 Days #28 tablet - Follow up/Referral Referrals: Solo Aguilera [Primary Care Provider] - - Patient Discharge Instructions Patient Printed Discharge Instructions: DI for Low Back Pain Additional Instructions: YOu were seen in the ER for back pain YOu have been prescribed medications take as prescribed Follow up with your primary care provider in the next few days - Post Discharge Activity
[2019-09-22] MEDS ORDERED: LIDOCAINE 5% TOPICAL PATCH TP ONE (16:49)
[2019-09-22] MEDS ORDERED: METHOCARBAMOL 500 MG TABLET PO ONE (16:49)
[2019-09-22] MEDS ORDERED: LIDOCAINE 5% TOPICAL PATCH ONE (17:00)
[2019-09-22] MEDS ORDERED: METHOCARBAMOL 500 MG TABLET ONE (17:00)
--- NOTE | 2019-09-22 17:01 | PDOC ---
Attending Attestation - Resident Resident Name: Ramon Villaseñor - HPI HPI: 09/22/19 17:42 Pt presents to the ED complaining of lower back pain that started 5 days ago. Denies trauma. Denies fever. Pain is worse with movement. Denies bowel or bladder complaints or leg weakness. - Physicial Exam PE: 09/22/19 17:45 Agree with resident exam. PAtient is alert and oriented and in no acute distress. + mild paraspinal tenderness in the lumbar region. No point tenderness over the spine. + tenderness in the LLQ. - Medical Decision Making 09/22/19 17:46 Patient presents to the ED complaining of sharp, pleuritic back pain. History of malignancy. Given history of malignancy and the nature of his pain, there is concern about bony mets to the spine. Given his age and the concurrent abdominal pain, there is also some concern for aortic pathology. Will check CT abdomen pelvis to rule out AAA. Will check CT of the spine to rule out bony mets. Will give pain control and discharge home if CT is negative.
[2019-09-22 17:30] LABS: EOS % 1.4 % (0-4.5); HEMATOCRIT 47.7 % (35.4-49); HEMOGLOBIN 16.2 GM/dL (11.7-16.9); LYMPH % 19.2 % (8-40); MCH 32.9 pg (25.7-33.7); MCHC 34.1 g/dl (32.0-35.9); MEAN CELL VOLUME 96.7 fl (80-96); MEAN PLT VOLUME 8.7 fl (7.5-11.1); MONO % 6.7 % (3.8-10.2); NEUT % 71.7 % (42.8-82.8); PLATELET COUNT 190 K/MM3 (134-434); RBC 4.93 M/mm3 (4.00-5.60); WHITE BLOOD COUNT 5.7 K/mm3 (4.0-10.0)
[2019-09-22 17:51] LABS: URINE APPEARANCE CLEAR; URINE BILIRUBIN NEGATIVE (NEGATIVE); URINE COLOR YELLOW; URINE GLUCOSE (UA) NEGATIVE (NEGATIVE); URINE KETONE NEGATIVE (NEGATIVE); URINE LEUK ESTERASE NEGATIVE (NEGATIVE); URINE NITRITE NEGATIVE (NEGATIVE); URINE PROTEIN NEGATIVE (NEGATIVE); URINE UROBILINOGEN 0.2 mg/dL (0.2-1.0)
[2019-09-22 17:56] LABS: ALBUMIN 4.2 g/dl (3.4-5.0); BILIRUBIN,TOTAL 0.5 mg/dL (0.2-1); BLOOD UREA NITROGEN 16.1 mg/dL (7-18); CALCIUM 9.1 mg/dL (8.5-10.1); POTASSIUM 4.4 mmol/L (3.5-5.1); TOT PROT 6.9 g/dl (6.4-8.2)
[2019-09-22 18:24] VITALS: TEMP 98
[2019-09-22] MEDS ORDERED: LIDOCAINE PATCH REMOVAL MC SCH (22:00)
[2019-09-22 22:07] VITALS: BP 128/78; PULSE 84
== END 2019-09-22 22:05 | disposition home or self-care (01) ==
LOC: JER 14:24
DX: M54.5 Low back pain (principal); I25.10 Atherosclerotic heart disease of native coronary artery without angina pectoris; I10 Essential (primary) hypertension; I71.4 Abdominal aortic aneurysm, without rupture
CPT/HCPCS: 36415; 74177-TC; 80053; 81003; 85025; 87086; 99283-25; Q9967